=== PATIENT | male | born 1995 | race Caucasian/White ===

== ENCOUNTER 2021-03-21 17:01 | Emergency (ER) | payer OTHER | END 2021-03-21 22:05 | disposition home or self-care (01) | LOC: FER 17:01 | DX: S51.811A Laceration without foreign body of right forearm, initial encounter (principal); S60.221A Contusion of right hand, initial encounter; J45.909 Unspecified asthma, uncomplicated; F17.290 Nicotine dependence, other tobacco product, uncomplicated; Z88.1 Allergy status to other antibiotic agents; W21.89XA Striking against or struck by other sports equipment, initial encounter; Y92.009 Unspecified place in unspecified non-institutional (private) residence as the place of occurrence of the external cause | CPT/HCPCS: 73130 ==